=== PATIENT | female | born 1950 | race Caucasian/White ===

== ENCOUNTER → 2024-01-16 15:22 | Outpatient (REF) | payer MEDICARE, OTHER, SELFPAY | LOC: RAD 15:22 | PROVIDERS: ATTENDING PHYSICIAN Family Medicine | DX: M79.605 Pain in left leg (principal) | CPT/HCPCS: 93971 ==

== ENCOUNTER → 2024-03-28 11:16 | Outpatient (REF) | payer MEDICARE, OTHER, SELFPAY ==
[2024-03-28 13:20] LABS: ALT (SGPT) 31 U/L (0-35); AST (SGOT) 29 U/L (14-36); Albumin 3.8 g/dl (3.5-5.0); Alkaline Phosphatase 58 U/L (38-126); Blood Urea Nitrogen 23 mg/dl (7-17); Calcium 9.1 mg/dl (8.4-10.2); Carbon Dioxide 29 mmol/L (22-30); Chloride 102 mmol/L (98-107); Glucose 147 mg/dl (70-99); HDL Cholesterol 52 mg/dl; LDL Cholesterol, Calculated 53 mg/dl; Potassium 4.2 mmol/L (3.5-5.1); Sodium 134 mmol/L (135-145); Total Bilirubin 0.6 mg/dl (0.2-1.3); Total Cholesterol 131 mg/dl (50-199); Total Protein 6.4 g/dl (6.3-8.2); Triglyceride 131 mg/dl (10-149); Very Low Density Lipoprotein 26 mg/dl (0-30); eGFR > 60.00
[2024-03-28 13:49] LABS: TSH 2.06 uIU/ml (0.47-4.68)
[2024-03-28 13:55] LABS: Glycohemoglobin (HgbA1c) 7.5 % (4.0-5.6)
== END ==
LOC: HWLAB 11:16
PROVIDERS: ATTENDING PHYSICIAN Internal Medicine Endocrinology, Diabetes & Metabolism; FAMILY PHYSICIAN Family Medicine
DX: E06.3 Autoimmune thyroiditis (principal); E11.9 Type 2 diabetes mellitus without complications
CPT/HCPCS: 36415; 80053; 80061; 83036; 84443

== ENCOUNTER → 2024-04-23 13:53 | Outpatient (REF) | payer MEDICARE, OTHER, SELFPAY ==
[2024-04-23 15:39] LABS: D-Dimer < 0.27 ug/mlFEU (0.00-0.50)
[2024-04-26 02:54] LABS: Beta-2-Glycoprotein I Ab. IgA <10 SAU (<=20); Beta-2-Glycoprotein I Ab. IgG <10 SGU (<=20); Beta-2-Glycoprotein I Ab. IgM <10 SMU (<=20)
[2024-04-26 08:03] LABS: Cardiolipin IgA Antibody <10 APL (<=11); Cardiolipin IgM Antibody <10 MPL (<=12); Cardiolipin Igg Antibody <10 GPL (<=14)
== END ==
LOC: REG 13:53
PROVIDERS: ATTENDING PHYSICIAN Internal Medicine Hematology & Oncology; FAMILY PHYSICIAN Family Medicine
DX: I82.502 Chronic embolism and thrombosis of unspecified deep veins of left lower extremity (principal)
CPT/HCPCS: 36415; 81240; 81241; 85300; 85305; 85379; 85610; 85613; 85730; 86146; 86147

== ENCOUNTER → 2024-04-26 14:43 | Outpatient (REF) | payer MEDICARE, OTHER, SELFPAY | LOC: WDC 14:43 | PROVIDERS: ATTENDING PHYSICIAN Physician Assistant Medical | DX: Z12.31 Encounter for screening mammogram for malignant neoplasm of breast (principal) | CPT/HCPCS: 77063; 77067 ==

== ENCOUNTER 2024-05-23 13:12 | Emergency (ER) | payer MEDICARE, OTHER, SELFPAY ==
[2024-05-23 13:13] VITALS: BP 142/77
--- NOTE | 2024-05-23 13:42 | ED.GENMED ---
History of Present Illness
General
Chief Complaint: Allergic Reaction
Source: patient
Time Seen by Provider: 05/23/24 13:30
History of Present Illness
History of Present Illness:
74-year-old female presenting to the emergency department for evaluation after she was stung multiple times by bee/wasp yesterday evening noting this morning she had some swelling and erythema to her right hand/forearm and left upper arm/axillary
area. Patient took Benadryl since bee stings as well as again today with last dose being at 4:30 AM. Due to the increased redness and swelling thought to come to the ER for further evaluation. Denies any shortness of breath, cough or any other
concerns.
Past History
Past History
ED Past Medical History: Asthma, CAD, GERD, HTN, Hypercholesterolemia, [place] (Inferior wall, 2011.), Psychiatric (ADD, DEPRESSION) and Other
ED Past Surgical History: Bowel resection (hemicolectomy), Cardiac (PTCA with stent RCA, 2010), and Gynecological (hyster)
Social History
Tobacco: Former smoker
Alcohol: Occasional
Drug: None
Personal:
Living: with family
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
Family History
Family History: Other (Noncontributory)
Review of Systems
Review of Systems
All Other Systems: ROS reviewed and negative except as documented in HPI and ROS
Phy Exam
Physical Exam
Physical Exam:
GENERAL: Alert , in no apparent distress
EYE: conjunctiva clear
NECK: Supple
ENT: o/p clr, mmm. No tonsillar edema, airway patent, no stridor
CARDIAC: Regular rate and rhythm
LUNGS: Clear breath sounds bilaterally, no acute respiratory distress, no wheezes/rales/rhonchi
NEUROLOGICAL: Alert and oriented
SKIN: Warm and dry, skin intact. mild erythema of the Dorsal right hand and forearm with soft tissue swelling. There is also erythema and soft tissue swelling of the left upper arm that extends towards the axillary region. Warm to the touch,
blanching, minimally tender
MUSCULOSKELETAL: well perfused.
PSYCH: Normal and appropriate interaction.
Scores
Heart Failure Risk
Heart Failure Risk Score: Not Applicable
Heart Score for Chest Pain Patients
STEMI patient?: Not applicable
Withdrawal Assessment of Alcohol
Withdrawal Assessment Completed?: Not applicable
Course
Vital Signs
Initial and Last Documented VS:
Initial Vital Signs
Temp Pulse Resp BP Pulse Ox
99.0 F 67 20 142/77 96
05/23/24 13:13 05/23/24 13:13 05/23/24 13:13 05/23/24 13:13 05/23/24 13:13
Last Documented Vital Signs
Temp Pulse Resp BP Pulse Ox
99.0 F 67 20 142/77 96
05/23/24 13:13 05/23/24 13:13 05/23/24 13:13 05/23/24 13:13 05/23/24 13:13
MDM/Problems Addressed
Differential Diagnosis Includes:
Inflammatory reaction to bee sting, currently no signs to suggest anaphylaxis, I do not suspect cellulitis or other infectious etiology
MDM/Problems Addressed:
74-year-old female presenting to the emergency department for evaluation after she was stung by multiple bees/wasps yesterday. Patient appears to be having an inflammatory reaction to her upper extremities bilaterally. Has been taking Benadryl
[id number] since the stings occurred. Patient is unable to take NSAIDs due to being on Eliquis. Will prescribe prednisone to get an anti-inflammatory effect as well as will help if there is any allergy component. Ice and elevate the
extremities. Can add on Tylenol for pain as needed. Patient is otherwise stable for discharge home. I did prescribe her short-term course of doxycycline however I did advise patient I did not feel that her symptoms were infectious and that I
would not start taking the antibiotic unless her symptoms were still persistent or worsening throughout the weekend
*Pulse Oximetry
Patient hypoxic: no
*Critical Care Note
Total Time (30-74mins, 75-104mins- exclusive of procedures): Not Applicable
ED Attending Note
-
Portions of this chart may have been created with voice recognition software.� Occasional wrong word or��sound alike� substitutions may have occurred due to the inherent limitations of voice recognition software.
Discharge Plan
Departure
Patient Disposition: Home (Routine Discharge)
Date of Disposition: 05/23/24
Time of Disposition: 13:44
Patient with high blood pressure during this ER visit?: Yes
Discharge Problem:
Bee sting
Instructions: Insect Bites and Stings ED
Prescriptions:
New
prednisone 10 mg Tablet
See Rx Instructions .ROUTE .COMPLEX Qty: 30 0RF
Rx Instructions:
Take By Mouth:
40 mg daily x3 days, 30 mg daily x3 days,
20 mg daily x3 days, 10 mg daily x3 days.
doxycycline hyclate 100 mg tablet
100 mg PO BID 7 Days Qty: 14 0RF
No Action
multivitamin [Daily Multiple] 1 EACH tablet
1 ea PO DAILY
atorvastatin 80 MG tablet
80 mg PO HS
aspirin 325 MG tablet,delayed release (DR/EC)
325 mg PO DAILY
ibuprofen [Advil] 200 MG tablet
600 mg PO PRN PRN (Reason: pain)
fluoxetine [Prozac] 20 MG capsule
30 mg PO DAILY
loratadine 10 MG tablet
10 mg PO DAILY
Lisinopril
5 mg PO DAILY
Patient Comments:
does not know the mg.
nitroglycerin 0.4 MG tablet, sublingual
0.4 mg sublingual [id number] PRN (Reason: chest pain)
fluticasone propionate [Flonase Allergy Relief] 9.9 ML spray,suspension
1 spray NS PRN PRN (Reason: stuffiness)
oseltamivir 75 MG capsule
75 mg PO BID Qty: 9 0RF
doxycycline monohydrate 100 mg tablet
100 mg PO BID Qty: 14 0RF
Interventions
Interventions:
*Risk Screen - Suicide Last Done: 05/23/24 13:30
*General Assessment Last Done: 05/23/24 13:30
*Neglect/Abuse Screening Last Done: 05/23/24 13:30
ED- Fall Risk Assessment Last Done: 05/23/24 13:30
ED- Cardiac Assessment Last Done: 05/23/24 13:30
ED- Pulmonary Assessment Last Done: 05/23/24 13:30
ED-Skin Assessment Last Done: 05/23/24 13:30
Discharge Date and Time
Print Language: UKRAINIAN
== END 2024-05-23 14:36 | disposition home or self-care (01) ==
LOC: EMR 13:12
PROVIDERS: EMERGENCY PHYSICIAN Emergency Medicine; FAMILY PHYSICIAN Family Medicine
DX: T63.441A Toxic effect of venom of bees, accidental (unintentional), initial encounter (principal); M79.89 Other specified soft tissue disorders; L53.9 Erythematous condition, unspecified; I25.10 Atherosclerotic heart disease of native coronary artery without angina pectoris; I10 Essential (primary) hypertension; E78.00 Pure hypercholesterolemia, unspecified; F32.A Depression, unspecified; J45.909 Unspecified asthma, uncomplicated; K21.9 Gastro-esophageal reflux disease without esophagitis; I25.2 Old myocardial infarction; Z87.891 Personal history of nicotine dependence; Z95.5 Presence of coronary angioplasty implant and graft; Z79.01 Long term (current) use of anticoagulants; Z98.0 Intestinal bypass and anastomosis status
CPT/HCPCS: 99283

== ENCOUNTER → 2024-06-12 11:09 | Outpatient (REF) | payer MEDICARE, OTHER, SELFPAY ==
[2024-06-12 12:30] LABS: D-Dimer 0.41 ug/mlFEU (0.00-0.50)
[2024-06-13 23:20] LABS: Protein C, Total Antigen 53 % (63-153)
== END ==
LOC: REG 11:09
PROVIDERS: ATTENDING PHYSICIAN Internal Medicine Hematology & Oncology; FAMILY PHYSICIAN Physician Assistant Medical
DX: I82.502 Chronic embolism and thrombosis of unspecified deep veins of left lower extremity (principal)
CPT/HCPCS: 36415; 85302; 85379

== ENCOUNTER → 2024-07-10 11:31 | Outpatient (REF) | payer MEDICARE, OTHER, SELFPAY ==
[2024-07-10 16:33] LABS: D-Dimer 0.42 ug/mlFEU (0.00-0.50)
== END ==
LOC: HWLAB 11:31
PROVIDERS: ATTENDING PHYSICIAN Internal Medicine Hematology & Oncology; FAMILY PHYSICIAN Physician Assistant Medical
DX: I82.502 Chronic embolism and thrombosis of unspecified deep veins of left lower extremity (principal)
CPT/HCPCS: 36415; 85379

== ENCOUNTER → 2024-09-14 14:57 | Outpatient (REF) | payer MEDICARE, OTHER, SELFPAY | LOC: HWRCS 14:57 | PROVIDERS: ATTENDING PHYSICIAN Internal Medicine Cardiovascular Disease; FAMILY PHYSICIAN Physician Assistant Medical | DX: I25.10 Atherosclerotic heart disease of native coronary artery without angina pectoris (principal) | CPT/HCPCS: 93306 ==

== ENCOUNTER → 2024-09-17 07:56 | Outpatient (REF) | payer MEDICARE, OTHER, SELFPAY | LOC: DHCBC/DCA 07:56 | PROVIDERS: ATTENDING PHYSICIAN Internal Medicine Cardiovascular Disease; FAMILY PHYSICIAN Physician Assistant Medical | DX: I25.10 Atherosclerotic heart disease of native coronary artery without angina pectoris (principal) | CPT/HCPCS: 78452; 93017; A9500; J2785 ==

== ENCOUNTER → 2025-01-22 16:17 | Outpatient (REF) | payer MEDICARE, OTHER, SELFPAY ==
[2025-01-22 18:02] LABS: C-Reactive Protein < 5.00 mg/L (0.0-10.00)
[2025-01-22 18:35] LABS: TSH Reflex To Free T4 1.69 uIU/ml (0.47-4.68)
[2025-01-22 18:39] LABS: Erythrocyte Sed Rate 6 mm/hour (0-20)
[2025-01-24 22:58] LABS: Alternaria tenuis <0.10 kU/L (<=0.34); Aspergillus fumigatus 0.29 kU/L (<=0.34); Bermuda Grass 0.22 kU/L (<=0.34); Birch Tree 0.12 kU/L (<=0.34); Box Elder/Maple Tree 0.81 kU/L (<=0.34); Common Pigweed 0.11 kU/L (<=0.34); Common/Short Ragweed 0.19 kU/L (<=0.34); Cottonwood Tree 0.37 kU/L (<=0.34); Dermatophagoides farinae 0.16 kU/L (<=0.34); Dermatophagoides pteronyssinus 0.21 kU/L (<=0.34); Dog Dander 1.93 kU/L (<=0.34); Elm Tree 0.77 kU/L (<=0.34); German Cockroach 0.24 kU/L (<=0.34); Hormodendrum <0.10 kU/L (<=0.34); IgE 557 kU/L (<=214); Mountain Cedar Tree 0.11 kU/L (<=0.34); Mouse Epithelium <0.10 kU/L (<=0.34); Mucor racemosus <0.10 kU/L (<=0.34); Mugwort Weed 0.22 kU/L (<=0.34); Oak Tree <0.10 kU/L (<=0.34); Penicillium notatum 1.19 kU/L (<=0.34); Sheep Sorrel Weed 0.12 kU/L (<=0.34); Sycamore Tree 0.27 kU/L (<=0.34); Timothy Grass 0.28 kU/L (<=0.34); Walnut Tree 0.31 kU/L (<=0.34); White Mulberry Tree 0.13 kU/L (<=0.34)
[2025-01-25 02:10] LABS: ANA, IgG Reflex to HEp-2 None Detected (None Detected)
== END ==
LOC: REG 16:17
PROVIDERS: ATTENDING PHYSICIAN Allergy & Immunology; FAMILY PHYSICIAN Physician Assistant Medical
DX: J30.1 Allergic rhinitis due to pollen (principal); J30.89 Other allergic rhinitis; J30.81 Allergic rhinitis due to animal (cat) (dog) hair and dander; L50.1 Idiopathic urticaria; J45.40 Moderate persistent asthma, uncomplicated; E04.1 Nontoxic single thyroid nodule
CPT/HCPCS: 36415; 82785; 84155; 84165; 84443; 85652; 86003; 86038; 86140

== ENCOUNTER → 2025-03-18 13:06 | Outpatient (REF) | payer MEDICARE, OTHER, SELFPAY ==
[2025-03-18 14:44] LABS: Glycohemoglobin (HgbA1c) 7.4 % (4.0-5.6)
[2025-03-18 14:51] LABS: ALT (SGPT) 36 U/L (0-35); AST (SGOT) 26 U/L (14-36); Albumin 4.4 g/dl (3.5-5.0); Alkaline Phosphatase 56 U/L (38-126); Blood Urea Nitrogen 20 mg/dl (7-17); Calcium 9.8 mg/dl (8.4-10.2); Carbon Dioxide 29 mmol/L (22-30); Chloride 105 mmol/L (98-107); Glucose 129 mg/dl (70-99); HDL Cholesterol 61 mg/dl; LDL Cholesterol, Calculated 64 mg/dl; Sodium 141 mmol/L (135-145); Total Cholesterol 140 mg/dl (50-199); Total Protein 6.8 g/dl (6.3-8.2); Triglyceride 75 mg/dl (10-149); Very Low Density Lipoprotein 15 mg/dl (0-30); eGFR > 60.00
[2025-03-18 15:15] LABS: TSH 2.42 uIU/ml (0.47-4.68)
== END ==
LOC: REG 13:06
PROVIDERS: ATTENDING PHYSICIAN Internal Medicine Endocrinology, Diabetes & Metabolism; FAMILY PHYSICIAN Physician Assistant Medical
DX: E11.9 Type 2 diabetes mellitus without complications (principal); E06.3 Autoimmune thyroiditis
CPT/HCPCS: 36415; 80053; 80061; 83036; 84443

== ENCOUNTER → 2025-11-11 13:20 | Outpatient (REF) | payer MEDICARE, OTHER, SELFPAY ==
[2025-11-11 15:59] LABS: ALT (SGPT) 33 U/L (0-35); AST (SGOT) 26 U/L (14-36); Albumin 4.0 g/dl (3.5-5.0); Alkaline Phosphatase 55 U/L (38-126); Blood Urea Nitrogen 22 mg/dl (7-17); Calcium 9.4 mg/dl (8.4-10.2); Carbon Dioxide 28 mmol/L (22-30); Chloride 104 mmol/L (98-107); Glucose 138 mg/dl (70-99); HDL Cholesterol 55 mg/dl; LDL Cholesterol, Calculated 55 mg/dl; Potassium 4.2 mmol/L (3.5-5.1); Sodium 136 mmol/L (135-145); Total Protein 6.7 g/dl (6.3-8.2); Very Low Density Lipoprotein 18 mg/dl (0-30); eGFR > 60.00
[2025-11-11 16:35] LABS: TSH 2.03 uIU/ml (0.47-4.68)
[2025-11-12 08:51] LABS: Glycohemoglobin (HgbA1c) 7.9 % (4.0-5.9)
== END ==
LOC: HWWDC 13:20
PROVIDERS: ATTENDING PHYSICIAN Internal Medicine Endocrinology, Diabetes & Metabolism; FAMILY PHYSICIAN Physician Assistant Medical; REFERRING PHYSICIAN Internal Medicine Cardiovascular Disease
DX: Z12.31 Encounter for screening mammogram for malignant neoplasm of breast (principal); Z13.820 Encounter for screening for osteoporosis; Z78.0 Asymptomatic menopausal state; E06.3 Autoimmune thyroiditis; E11.9 Type 2 diabetes mellitus without complications
CPT/HCPCS: 36415; 77063; 77067; 77080; 80053; 80061; 83036; 84443